=== PATIENT | male | born 1945 | race Caucasian/White ===

== ENCOUNTER → 2017-01-17 09:09 | Outpatient (CLI) | payer MEDICARE, OTHER ==
[~2017-01-17 09:09] MED LIST: CELEXA20 MG PO; MELOXICAM TAB 15M; PROTONIX40 MG PO
[2017-01-24 16:43] VITALS: BMI 29.7
== END | disposition home or self-care (01) ==
LOC: D.CT 09:09
DX: C64.1 Malignant neoplasm of right kidney, except renal pelvis (principal)

== ENCOUNTER 2017-01-24 10:28 | Outpatient (CLI) | payer MEDICARE, OTHER ==
[2017-01-24] VITALS (12 sets, daily range): BP systolic 116–201; BP diastolic 61–119; BMI 29.7
[2017-01-24] MEDS ORDERED: MELOXICAM TAB 15M (11:16)
[2017-01-24] MEDS ORDERED: PROTONIX40 MG PO (11:17)
[2017-01-24] MEDS ORDERED: CELEXA20 MG PO (11:17)
[2017-01-24 12:58] LABS: BASOPHILS 1.1 % (0-2); HEMATOCRIT 44.4 % (42.0-54.0); HEMOGLOBIN 15.6 g/dL (13.5-17.5); IMMATURE GRANULOCYTES 0.4 % (0-5); LYMPHOCYTES 49.3 % (15-50); MCH 32.1 pg (26.0-34.0); MCHC 35.1 g/dL (31.0-37.0); MCV 91.4 fL (80.0-100.0); MEAN PLATELET VOLUME 11.5 fL (7.4-10.4); MONOCYTES 12.3 % (2-11); NEUTROPHILS 32.9 % (40-80); PLATELET COUNT 318 10x3/uL (130-400); RBC 4.86 10x6/uL (4.20-6.10); RDW 14.3 % (11.5-14.5); WBC 8.4 10x3/uL (4.8-10.8)
[2017-01-24 13:03] LABS: CALC OSMOLALITY 280 mosm/kg (275-300); CALCIUM 9.2 mg/dL (8.5-10.1); CARBON DIOXIDE 24.4 mmol/L (21.0-32.0); CHLORIDE - SERUM 105 mmol/L (98-107); GLUCOSE 104 mg/dL (74-106); POTASSIUM - SERUM 4.6 mmol/L (3.5-5.1); SODIUM 139 mmol/L (136-145); UREA NITROGEN 22 mg/dL (7-18); eGFR NON AFRICAN AMERICAN 78 mL/min (90-120)
[2017-01-24 13:08] LABS: APTT 29.3 SECONDS (22.8-39.4); INR 1.02 (0.85-1.17); PROTIME 13.3 SECONDS (11.6-15.0)
--- NOTE | 2017-01-24 16:00 | NUR ---
ZOFRAN 4MG IVP GIVEN PER ORDER
--- NOTE | 2017-01-24 17:00 | NUR ---
HYDRALIZINE 10 MG IVP GIVEN PER ORDER
--- NOTE | 2017-01-24 17:46 | NUR ---
COMPAZINE 10MG IVP GIVEN PER MAR ORDER,
--- NOTE | 2017-01-24 18:00 | NUR ---
DILAUDID 2 MG IVP GIVEN PER MAR FLOWSHEET
--- NOTE | 2017-01-24 18:30 | NUR ---
SLEEPING WITH NO SIGNS OF DISTRESS, VSS, BP 116/61, AT BEDSIDE, NO NEEDS AT THIS TIME
--- NOTE | 2017-01-24 19:10 | NUR ---
Received patient resting in bed with eyes closed, assessment completed per flowsheet. Patient AO x4, calm and cooperative. Eyes PERRLA @ 4mm with brisk response, sclera is white and clear. S1/S2 noted NSR on telemetry with HR 85, rhythmic and regular. Breathing is slightly shallow on 2L via NC with O2 sat 96%, lung sounds clear bilateral upper with diminished mid and lower. Abdomen is distended and soft with bowel sounds hypoactive x4, non-tender. R posterior flank dressing CDI, no swelling or bleeding/drainage noted. Patient utilizes urinal jug without assistance, no reported difficulties. Full ROM all extremities with all pulses palpable, cap refill < 3 sec with skin warm/dry to touch. 22g PIV noted L wrist, patent with NS @ 20ml/hr infusing. Patient denies pain or other needs at this time, all VSS and will continue to monitor.
--- NOTE | 2017-01-24 21:00 | NUR ---
Patient resting in bed with eyes closed, breathing is slightly shallow and unlabored on 2L via NC with O2 sat 96%. No visitors at this time, all VSS and will continue to monitor.
--- NOTE | 2017-01-24 23:00 | NUR ---
Reassessment completed per flowsheet, patient resting in bed with eyes closed. Patient AO x4, calm and cooperative. S1/S2 noted NSR on telemetry with HR 78, rhythmic and regular. Breathing is slightly shallow on O2 at 2L via NC with O2 sat 91%, lung sounds clear bilateral upper with diminished mid and lower. Abdomen is distended and soft with bowel sounds hypoactive x4, non-tender. R posterior flank dressing CDI, no swelling/bleeding noted. All pulses palpable with cap refill < 3, skin is warm/dry to touch. Patient denies other needs at this time, all VSS and will continue to monitor.
[2017-01-25] VITALS (11 sets, daily range): BP systolic 102–132; BP diastolic 50–73
--- NOTE | 2017-01-25 01:00 | NUR ---
Patient resting in bed with eyes closed, breathing is slightly shallow and unlabored on 2L via NC with O2 sat 93%. Lung sounds clear bilateral upper with diminished mid and lower, cap refill < 3 sec with all pulses palpable. Patient denies pain or other needs at this time, all VSS and will continue to monitor.
--- NOTE | 2017-01-25 03:05 | NUR ---
Reassessment completed per flowsheet, patient resting in bed with eyes closed. Patient AO x4, calm and cooperative. S1/S2 noted NSR on telemetry with HR 76, rhythmic and regular. Breathing is slightly shallow on 2L via NC with O2 sat 96%, lung sounds clear bilateral upper with diminished mid and lower. R posterior dressing CDI, no bleeding/drainage noted. All pulses palpable with cap refill < 3 sec, skin warm/dry to touch. Patient denies pain or other needs at this time, all VSS and will continue to monitor.
[2017-01-25 04:34] LABS: BASOPHILS 0.1 % (0-2); EOSINOPHILS 0.1 % (0-7); HEMATOCRIT 43.9 % (42.0-54.0); HEMOGLOBIN 15.2 g/dL (13.5-17.5); IMMATURE GRANULOCYTES 0.1 % (0-5); MCH 31.7 pg (26.0-34.0); MCHC 34.6 g/dL (31.0-37.0); MCV 91.6 fL (80.0-100.0); MEAN PLATELET VOLUME 10.3 fL (7.4-10.4); MONOCYTES 12.6 % (2-11); NEUTROPHILS 63.1 % (40-80); PLATELET COUNT 267 10x3/uL (130-400); RBC 4.79 10x6/uL (4.20-6.10); RDW 14.8 % (11.5-14.5)
[2017-01-25 04:37] LABS: WBC 13.4 10x3/uL (4.8-10.8)
--- NOTE | 2017-01-25 05:00 | NUR ---
AM labs collected without difficulty, patient resting in bed with eyes closed. Breathing is shallow and unlabored on 2L via NC with O2 sat 97%, lung sounds clear bilateral upper with diminished mid and lower. R posterior flank dressing CDI, no swelling/bleeding noted. Patient denies pain or other needs at this time, all VSS and will continue to monitor.
--- NOTE | 2017-01-25 09:58 | NUR ---
AWAKE AND ALERT SKIN WARM AND DRY. DRESSING ON RIGHT BACK DRY AND INTACT. DENIES ANY PAIN BREAKFAST SERVED ATE 100%. IV LEFT WRIST WITHOUT REDNESS OR SWELLING INFUSING WITH NS AT 100 ML HOUR. MONITOR SR. BILATERAL LUNG SOUNDS CLEAR AND EQUAL. ABD SOFT WITH BOWEL SOUNDS. NO EDEMA IN EXTREMITIES.
--- NOTE | 2017-01-25 13:37 | NUR ---
ATE 100% OF LUNCH. DRESSING ON RIGHT BACK DRY AND INTACT. DR. MARIA CALLED NOTIFIED OF PATIENT ROOM NUMBER. AT BEDSIDE QUESTIONS ANSWERED. DENIES ANY PAIN
== END 2017-01-25 15:30 | disposition home or self-care (01) ==
LOC: D.ICU 10:28 → D.OPS 10:28 → D.CT 12:00 → D.OPS 13:00 → D.CT 13:00 → D.ICU 15:00 → D.OPS 01-25 15:30
PROVIDERS: Radiology Diagnostic Radiology
DX: C64.1 Malignant neoplasm of right kidney, except renal pelvis (principal); Z87.891 Personal history of nicotine dependence; K21.9 Gastro-esophageal reflux disease without esophagitis; F41.9 Anxiety disorder, unspecified; Z01.812 Encounter for preprocedural laboratory examination

== ENCOUNTER → 2017-03-26 08:50 | Outpatient (CLI) | payer MEDICARE, OTHER ==
[2017-01-24 16:43] VITALS: BMI 29.7
== END | disposition home or self-care (01) ==
LOC: D.CT 08:50
DX: C64.1 Malignant neoplasm of right kidney, except renal pelvis (principal)